=== PATIENT | male | born 1950 | race Caucasian/White ===

== ENCOUNTER → 2025-03-03 | Outpatient (CLI) | payer MEDICARE, SELFPAY ==
--- NOTE | 2025-03-03 13:30 | XR_ITS ---
Examination: CT chest, without intravenous contrast. Sagittal and coronal 2-D reconstructions. Exam date and time: March 03, 2025 1332 hours INDICATIONS: Smoking history 40 years CTDI:vol (mGy) 13.8 DLP: (mGycm) 602 Technique: Multiple 3.0 mm axial sections of the chest to been obtained. Bone and lung density settings are obtained. Sagittal and coronal 2-D reconstructions have been obtained. Low dose protocols were performed. One or more of the following dose reduction techniques were used; automated exposure control, adjustment of the mA and/or KV according to patient size, use of iterative reconstruction technique. Findings: Thoracic aorta calcification no aneurysmal dilatation No paratracheal tracheobronchial or bronchopulmonary adenopathy Significant calcification left main left circumflex left anterior descending coronary arteries 4 mm calcified granuloma left lower lobe No pneumonia or pulmonary edema or pleural disease Moderate thoracic spondylosis 6 mm posterior right lobe liver cyst Cholelithiasis No pancreatic or adrenal mass 4 mm right renal calculus, bilateral renal cysts with calcification the posterior wall of the 29 mm posterior left renal cyst IMPRESSION: Significant calcification left main left circumflex left anterior descending coronary arteries No mediastinal lymphadenopathy No noncalcified pulmonary nodules Cholelithiasis 4 mm right renal calculus
== END | disposition home or self-care (01) ==
PROVIDERS: Referring Provider Physician Assistant; Visit Provider Physician Assistant
DX: I25.10 Atherosclerotic heart disease of native coronary artery without angina pectoris (principal); K80.20 Calculus of gallbladder without cholecystitis without obstruction; N20.0 Calculus of kidney; F17.210 Nicotine dependence, cigarettes, uncomplicated
CPT/HCPCS: 71271